=== PATIENT | female | born 1945 | race Caucasian/White ===

== ENCOUNTER 2017-11-14 06:31 | Day surgery (SDC) | payer MEDICARE ==
[2017-11-13 16:39] VITALS: BMI 25.4
[2017-11-14] MEDS ORDERED: Oxymetazoline HCl 0.05% ( 15 ML ) ONE ×2 (07:00→07:21)
[2017-11-14] MEDS ORDERED: Lidocaine 1% w/Epinephrine 1:100K 30 ML VIAL ONE (07:21)
[2017-11-14] MEDS ORDERED: Bacitracin Zinc Ointment 30 gm TUBE ONE (08:00)
[2017-11-14] MEDS ORDERED: Fentanyl 100 MCG/2 ML VIAL ONE (08:48)
[2017-11-14] MEDS ORDERED: Lidocaine 1% PF 5 ML VIAL ONE (10:33)
[2017-11-14] MEDS ORDERED: PROPOFOL 200 MG/20 ML VIAL ONE (10:33)
[2017-11-14] MEDS ORDERED: Dexamethasone 20 MG/5 ML VIAL ONE (10:33)
[2017-11-14] MEDS ORDERED: Glycopyrrolate 0.2 MG/ML 5 ML SYRINGE ONE (10:33)
[2017-11-14] MEDS ORDERED: Ondansetron HCl/PF 4 MG/2 ML Vial ONE (10:33)
--- NOTE | 2017-11-15 11:43 | OP ---
PREOPERATIVE DIAGNOSES: 1. Chronic rhinosinusitis. 2. Bilateral inferior turbinate hypertrophy. 3. Nasal obstruction. POSTOPERATIVE DIAGNOSES: 1. Chronic rhinosinusitis. 2. Bilateral inferior turbinate hypertrophy. 3. Nasal obstruction. PROCEDURES: 1. Bilateral endoscopic sinus surgery, total ethmoidectomies. 2. Bilateral endoscopic sinus surgery, maxillary antrostomies. 3. Bilateral endoscopic sinus surgery, frontal sinusotomies. 4. Bilateral endoscopic sinus surgery, sphenoidotomies. 5. Bilateral inferior turbinate submucosal resection. SURGEON: Shubham Basurto M.D. ESTIMATED BLOOD LOSS: 20 mL COMPLICATIONS: None. ANESTHESIA: GETA. PROCEDURE IN DEATIL: The patient was taken to the operating room and placed supine on the table. Ge neral endotracheal anesthesia was obtained by the Anesthesia staff. Tube was secured in the left low er lip. Following this, Afrin pledgets were placed in the nasal cavity while the patient was prepped and draped for standard nasal procedure. Following this, Afrin pledgets were removed. The 0-degree endoscope was advanced in the nasal cavity where a 27 gauge needle was used to make injections of 1% lidocaine with 1:100,000 epinephrine into the inferior turbinates, the middle turbinates, and the la teral nasal wall bilaterally. Following this, the middle turbinate was gently medialized using a Favio er elevator and the uncinate process was exposed bilaterally. The ball-ended probe was then used to anteriorly fracture the uncinate process and remove the uncinate using the microdebrider. Following this, the natural maxillary sinus ostia was identified by palpation using the ball-ended probe and wa s gently widened using a straight microdebrider and straight Blakesley forceps bilaterally. Followin g this, the ethmoidal bulla was identified and was punctured into the posterior ethmoidal cells. Fol lowing this, the ethmoidal bulla was identified bilaterally and then was punctured on its medial and inferior aspect with the microdebrider. The microdebrider and the upbiting Blakesley forceps were us ed to remove the ethmoidal bulla cells as well as open the anterior ethmoidal cells. Following this, the grand lamella was identified and was punctured into the posterior ethmoidal cells. Working from posterior to anterior using the straight microdebrider and curved microdebrider and the upbiting Surinder tysley forceps, the ethmoidal cells were opened. Following this, the sphenoid sinuses were approache d by staying medial to the middle turbinate bilaterally. Following this, the superior turbinate and its attachment to the posterior nasal wall was identified bilaterally, staying just medial and inferi or to this, a sphenoidotomy was created using a Gold tip suction bilaterally. Following this, the 0-degree microdebrider was used to widen the sphenoidotomy medially and inferiorly bilaterally. Fol lowing this, the 45-degree scope and the 40-degree microdebrider blade was used to further identify t he frontal recess and frontal sinus ostia bilaterally. These areas were then opened using the microd ebrider. Following this, inferior turbinates were punctured on the anterior inferior aspect with the submucosal microdebrider and submucosal resection was performed in the anterior inferior portions of the inferior turbinates bilaterally. The patient tolerated the procedure well. Nasal cavity was ir rigated, Mirapex were placed within the middle meatus.
--- NOTE | 2017-11-16 15:07 | EKG ---
Test Reason : PREOP Blood Pressure : / mmHG Vent. Rate : 063 BPM Atrial Rate : 063 BPM P-R Int : 180 ms QRS Dur : 086 ms QT Int : 394 ms P-R-T Axes : 041 030 067 degrees QTc Int : 403 ms Normal sinus rhythm Normal ECG No previous ECGs available Confirmed by OBDULIO SARGENT MD ([id number]) on 11/16/2017 3:07:00 PM Referred By: KAYLEY Confirmed By:OBDULIO SARGENT MD
== END 2017-11-14 11:05 | disposition home or self-care (01) ==
LOC: SDC 06:31
PROVIDERS: ATTEND Otolaryngology Plastic Surgery within the Head & Neck
PROC: 09TV8ZZ Resection of Left Ethmoid Sinus, Via Natural or Artificial Opening Endoscopic (ICD-10-PCS; principal; 2017-11-14)
PROC: 09TU8ZZ Resection of Right Ethmoid Sinus, Via Natural or Artificial Opening Endoscopic (ICD-10-PCS; 2017-11-14)
DX: J32.9 Chronic sinusitis, unspecified (principal); J34.3 Hypertrophy of nasal turbinates; J34.2 Deviated nasal septum; J34.89 Other specified disorders of nose and nasal sinuses; Z88.2 Allergy status to sulfonamides; Z88.5 Allergy status to narcotic agent
CPT/HCPCS: 93005; 93010; J1100; J2001; J2405; J2704; J3010